=== PATIENT | female | born 1990 | race Caucasian/White ===

== ENCOUNTER 2018-03-04 06:17 | Inpatient (IN) ==
[2018-03-04] MEDS ORDERED: METHYLERGONOVINE 0.2 MG/ML INJECTION IM PRN (06:23)
[2018-03-04] MEDS ORDERED: LIDOCAINE 1% (10mg/ml) 2mL INJ PF SDV ID PRN (06:23)
[2018-03-04] MEDS ORDERED: OXYTOCIN DRIP 30 UNIT/500 ML ML IV PRN (06:23)
[2018-03-04] MEDS ORDERED: CALCIUM CARBONATE Chewable 500mg TABLET PO PRN ×2 (06:23→18:29)
[2018-03-04] MEDS ORDERED: MAG-AL + SIM ORAL LIQUID 30ml PO PRN (06:23)
[2018-03-04] MEDS ORDERED: ACETAMINOPHEN 500 MG TABLET PO PRN ×2 (06:23→18:29)
[2018-03-04] MEDS ORDERED: CARBOPROST 250 MCG/ML INJECTION IM PRN (06:23)
[2018-03-04] MEDS ORDERED: D5LR 1,000 ML IV PRN (06:23)
[2018-03-04 06:51] VITALS: BMI 31.2
[2018-03-04] MEDS: LR 1,000 ML IV PRN ×3 (07:04→13:00)
[2018-03-04] MEDS ORDERED: ROPIVACAINE 1% 10MG/ML INJ 200 MG, SUFentanil 50 MCG in NS 100 ML EPI PRN (10:07)
[2018-03-04] MEDS ORDERED: ONDANSETRON 4 MG/2 ML INJECTION IVP PRN ×3 (10:07→18:29)
[2018-03-04] MEDS ORDERED: DiphenhydrAMINE 50 MG/ML INJECTION IVP PRN (10:07)
[2018-03-04] MEDS ORDERED: NALOXONE 0.4 MG/ML INJECTION IVP PRN (10:07)
--- NOTE | 2018-03-04 10:07 | Anesthesia Preoperative Report ---
Anesthesia Epidural/Spinal Rec - Date and Time Date: 03/04/18 Preoperative Diagnosis: Term Induction Procedure: Labor Epidural Plan: Epidural - Vital Signs Vital Signs: Temperature 97.9 F 03/04/18 06:40 Pulse Rate 125 H 03/04/18 06:40 Respiratory Rate 16 03/04/18 06:40 Blood Pressure 127/87 03/04/18 06:40 Pulse Oximetry 97 03/04/18 06:40 /Para: P:0 - Medictaions & Allergies Inpatient Medications: Current Medications Acetaminophen (Tylenol) 500 - 1,000 mg PO Q4H PRN PRN Reason: Pain Al Hydroxide/Mg Hydroxide (Maalox Plus) 30 ml PO Q3H PRN PRN Reason: Indigestion Calcium Carbonate (Tums) 500 - 1,000 mg PO Q2H PRN PRN Reason: Indigestion Carboprost Tromethamine (Hemabate) 250 mcg IM O PRN PRN Reason: .Downtime Lactated Ringer's (Lactated Ringers) 1,000 mls @ 999 mls/hr IV .Q1H1M PRN Last Admin: 03/04/18 07:04 Dose: 999 mls/hr Oxytocin (Pitocin Drip) 30 unit in 500 mls @ 2 mls/hr IV .Q24H PRN; Protocol PRN Reason: Induction/Augmentation Last Admin: 03/04/18 07:04 Dose: 2 mls/hr Dextrose/Lactated Ringer's (Dextrose 5%-Lactated Ringers) 1,000 mls @ 125 mls/ hr IV .Q8H PRN PRN Reason: Labor Last Admin: 03/04/18 07:00 Dose: 125 mls/hr Lidocaine HCl (Xylocaine-Mpf 1% Vial) 0.2 mg ID O PRN PRN Reason: IV Start Methylergonovine Maleate (Methergine) 0.2 mg IM O PRN Misoprostol (Cytotec) 800 mcg NC ONCE PRN Allergies/Adverse Reactions: Allergies Allergy/AdvReac Type Severity Reaction Status Date / Time Penicillins Allergy Verified 03/04/18 07:09 Sulfa (Sulfonamide Allergy Verified 03/04/18 07:09 Antibiotics) - Home Medications Home Medications: Home Medications Medication Instructions Recorded Confirmed Type Flonase 02/24/18 History Iron 02/24/18 History Loratadine 02/24/18 History Vitamins 02/24/18 History - Medical History Respiratory: Reports: Asthma (sports induced) DENIES: Bronchitis, Chronic Obstructive Pulmonary Disease (COPD), Dyspnea, Orthopnea, Pulmonary Embolism, Pneumonia, Upper Respiratory Infection, Pulmonary Edema, Sleep Apnea, Tuberculosis, Other Cardiovascular: DENIES: Abnormal EKG, Angina, Arrhythmia, Congestive Heart Failure, Coronary Artery Disease, Heart Murmur, Hypertension, Hypotension, High Cholesterol, Myocardial Infarction, Rheumatic Fever, Valvular Heart Disease, Other Gastrointestional: DENIES: Obstructive Bowel, Hepatitis, Cirrhosis, Nausea or Vomiting Present, Gastroesophageal Reflux Disease, Gastrointestinal Bleeding, Hiatal Hernia, Ulcer , Morbid Obesity, Other Neuro/Musculoskeletal: Denies: HX.MS.OSAR, Back Problems, Cerebrovascular Accident, Depression, Headaches, Loss of Consciousness, Muscle Weakness, Neuromuscular Disorder, Paralysis, Paresthesia, Syncope, Seizures, Other Renal/Endocrine: DENIES: Diabetes Mellitus Type 1, Diabetes Mellitus Type 2, Renal Failure, Dialysis, Thyroid Disease, Weight Loss, Weight Gain, Other Other History: Reports: Now - Surgical History HEENT Surgeries: Reports: Oral Surgery (wisdom teeth 2009) Anesthesia Reactions: None Hx Family Anesthesia Reaction: No History of Motion Sickness: No - Social History Smoking Status: Never smoker Substance Use Type: does not use Alcohol Intake Frequency: does not drink Hx Chewing Tobacco Use: No - Pertinent Findings Lab Data: CBC and BMP 03/04/18 06:42 - Physical Exam Respiratory Exam: lungs clear, bilateral breath sounds equal Cardiovascular Exam: regular rate and rhythm, no murmur - Airway Assessment Mallampati Score: I TMD: 3 Fingerbreadths Neck Extension: good Overall Assessment: may be difficult intubation - ASA ASA Score: 2 - Discussion Discussion: Discussed risks/options/alternatives of anesthesia and questions answered. Patient consents. Nursing pain assessment noted. Anesthesia Discussion: spouse Attestation Statement: Prior to the delivery of any anesthetic medication, I examined the patient, developed the plan, obtained the patient's consent and discussed the risk and benefits of the procedure with the patient/guardian.
[2018-03-04] MEDS ORDERED: FAMOTIDINE PB 20 MG/50 ML BAG IV ONE (16:30)
[2018-03-04] MEDS ORDERED: CEFAZOLIN PREMIX (MC ONLY) 2 GM/50 ML BAG IV ONE (16:30)
[2018-03-04] MEDS ORDERED: CITRIC ACID/SODIUM CITRATE 30ml PO ONE (16:30)
[2018-03-04] MEDS ORDERED: SODIUM BICARBONATE 8.4% (50mEq/50ml) VIAL IV ONE (16:35)
[2018-03-04] MEDS ORDERED: LIDOCAINE 2%/EPI 1:200,000 20ml SDV PF ONE (16:35)
[2018-03-04] MEDS ORDERED: NALBUPHINE 10 MG/ML INJECTION IVP PRN (16:40)
[2018-03-04] MEDS ORDERED: NALOXONE 2 MG/2 ML INJECTION PFS IVP PRN (16:40)
[2018-03-04] MEDS ORDERED: GENTAMICIN 120 MG in NS 100 ML IV ONE (16:45)
[2018-03-04] MEDS ORDERED: OXYTOCIN BOLUS BAG 30 UNIT/500 ML ML IV SCH (17:00)
[2018-03-04] MEDS ORDERED: MORPHINE SULFATE PF 5mg/10ml INJ (Duramorph) ONE (17:08)
[2018-03-04] MEDS: CLINDAMYCIN PB 900 MG/50 ML BAG IV SCH (17:20)
[2018-03-04] MEDS ORDERED: GENTAMICIN - PHARMACY CONSULT MC ONE (17:47)
[2018-03-04] MEDS ORDERED: HYDROCORTISONE 2.5% CREAM 30gm RECTALLY PRN (18:29)
[2018-03-04] MEDS ORDERED: DiphenhydrAMINE 25 MG CAPSULE PO PRN (18:29)
[2018-03-04] MEDS ORDERED: SIMETHICONE 80 MG CHEWABLE TABLET PO PRN (18:29)
[2018-03-04] MEDS ORDERED: SALINE FLUSH 10ml SYRINGE IV PRN (18:29)
[2018-03-04] MEDS ORDERED: METOCLOPRAMIDE 10mg/2ml INJECTION IVP PRN (18:29)
[2018-03-04] MEDS ORDERED: OXYTOCIN DRIP 30 UNIT/500 ML ML IV SCH (18:29)
[2018-03-04] MEDS: D5LR 1,000 ML IV SCH (18:42)
[2018-03-04] MEDS: HYDROCODONE/APAP 5mg/325mg TABLET PO PRN (18:43)
--- NOTE | 2018-03-04 19:42 | Operative Note ---
DATE OF SURGERY: 03/04/2018 PREOPERATIVE DIAGNOSES 1. 27-year-old white female G1, P0 at 39.0 weeks gestational age. 2. Polyhydramnios. 3. Pitocin induction of labor for polyhydramnios. 4. Epidural. 5. Spontaneous rupture of membranes. 6. Chorioamnionitis. 7. Arrest of descent. POSTOPERATIVE DIAGNOSES 1. Male infant, 3894 grams, 7/9 Apgars, (DANIEL BRYANT). PROCEDURE: Primary low transverse section. SURGEON: Dorian Henao MD DAMAGED FREIGHT INSPECTOR: Don Armstrong DO EBL: 800 mL ANESTHESIA: Epidural catheter dosing by Luca Dupree CRNA COMPLICATIONS: None This is a patient of mine who was being induced today because of polyhydramnios at term. We have been following her poly for a month or so. Pitocin reached a maximum of 18 milliunits a minute. Spontaneous rupture of membranes occurred at 8:10 a.m. Patient made it to complete dilation and pushed for almost three hours in the OA position without descent. At the end of our time pushing, vaginal temperature was 101. was called and IV antibiotics were started with cephazolin and gentamicin given before delivery and clindamycin after delivery. DESCRIPTION OF PROCEDURE After adequate epidural anesthesia, the patient was prepped and draped in the left lateral decubitus position with pt also in low lithotomy stirrups. A Pfannenstiel skin incision was made with a sharp knife and carried down the fascia, which was incised transversely with the Arriaga scissors. The rectus fascia was bluntly and sharply dissected off the rectus muscle. The rectus muscle was divided, and the peritoneum was isolated, elevated, entered with the Metzenbaum scissors and extended cephalad and caudad. The bladder blade was then inserted. The lower vesicouterine fold of the peritoneum was isolated and incised transversely. The bladder was bluntly dissected off the lower uterine segment. The bladder blade was reinserted. Then using a sharp knife, a transverse incision was made in the lower uterine segment. This was extended with my fingers. A male infant was in the OA position but wedged in the pelvis. We had the patient in stirrups so that the charge nurse could elevate the head from below. We were able to rotate the baby to OP and elevate the head out and then deliver it. was bulb suctioned after delivery of the head and then again after delivery of the body. Cord was doubly clamped and cut and the was received by Dr. Aubrey Juares of Pediatrics. The placenta was expressed spontaneously and was intact. The uterus was then allowed to fall upon the external abdominal wall. The endometrial cavity was cleansed using moist lap sponges. The uterus was closed using 0-Monocryl in a running locking fashion bilaterally from the lateral edges medially. Hemostasis was confirmed. The bladder flap was then reapproximated with the visceral peritoneum using 3-0 Vicryl in a running nonlocking fashion. The posterior cul-de-sac was cleansed of old blood clots and the tubes and ovaries were examined and found to be normal in size, shape and appearance. After hemostasis was again confirmed, the uterus was then carefully returned to the abdominal cavity. The abdomen was then closed in layers. The peritoneum was closed using 2-0 Vicryl in running nonlocking fashion. The fascia was closed using 0-Vicryl in a running nonlocking fashion bilaterally from the lateral aspects medially. Hemostasis was achieved with the subcutaneous tissue and then the skin was closed using wide rula in a serial fashion. The patient tolerated the procedure well and went to the recovery room in stable condition. Pad, sponge and needle counts were correct and urine postop was clear and free flowing. MTDD
[2018-03-04] MEDS: SIMETHICONE 80 MG CHEWABLE TABLET PO SCH (22:48)
[2018-03-05] MEDS: GENTAMICIN PB 120 MG/100 ML BAG IV SCH ×3 (00:10→16:20)
[2018-03-05] MEDS: CEFAZOLIN 1 G in NS 100 ML IV SCH ×3 (00:52→17:28)
[2018-03-05] MEDS: CLINDAMYCIN PB 900 MG/50 ML BAG IV SCH ×4 (01:27→18:19)
[2018-03-05] MEDS: IBUPROFEN 800 MG TABLET PO PRN ×3 (02:29→21:56)
[2018-03-05] MEDS: HYDROCODONE/APAP 5mg/325mg TABLET PO PRN ×5 (02:29→21:56)
[2018-03-05] MEDS: D5LR 1,000 ML IV SCH (08:49)
--- NOTE | 2018-03-05 09:21 | Progress Note ---
OB PP Progress Note Free Text - Date Date: 03/05/18 - Progress Note Progress Note: POD #1 vss af doing well disc likely course from here disc plan w/ RN q&a-krb
[2018-03-05] MEDS: SIMETHICONE 80 MG CHEWABLE TABLET PO SCH ×3 (12:09→21:57)
[2018-03-05] MEDS: DOCUSATE CALCIUM 240 MG CAPSULE PO SCH (12:09)
--- NOTE | 2018-03-05 14:51 | Anesthesia Postoperative Note ---
- Date and Time Date: 03/05/18 Time: 14:50 - Status Patient Participated in Evaluation: Patient Participated in Person Vital Signs: Temperature 97.5 F 03/05/18 11:00 Pulse Rate 103 H 03/05/18 11:00 Respiratory Rate 16 03/05/18 11:00 Blood Pressure 126/75 03/05/18 11:00 Pulse Oximetry 96 03/05/18 11:00 Respiratory Function: Airway Patent Cardiovascular Function: Regular Pulse Mental Status: Alert and Oriented Pain Intensity: 0 Hydration: Taking PO Fluids Complications During Recover: None Apparent - Follow-Up Instructions Instructions: Per Surgeon
--- NOTE | 2018-03-05 17:30 | Progress Note ---
OB PP Progress Note Free Text - Date Date: 03/05/18 - Progress Note Progress Note: vss af will dc antibiotics tonight q&a w/ pt and family.
[2018-03-06] MEDS: GENTAMICIN PB 120 MG/100 ML BAG IV SCH (00:17)
[2018-03-06] MEDS: D5LR 1,000 ML IV SCH (02:28)
[2018-03-06] MEDS: CEFAZOLIN 1 G in NS 100 ML IV SCH (02:34)
[2018-03-06] MEDS: CLINDAMYCIN PB 900 MG/50 ML BAG IV SCH (02:34)
[2018-03-06] MEDS: HYDROCODONE/APAP 5mg/325mg TABLET PO PRN ×3 (03:59→17:41)
[2018-03-06] MEDS: SIMETHICONE 80 MG CHEWABLE TABLET PO SCH ×3 (08:45→17:41)
[2018-03-06] MEDS: DOCUSATE CALCIUM 240 MG CAPSULE PO SCH (08:45)
[2018-03-06] MEDS: IBUPROFEN 800 MG TABLET PO PRN ×2 (10:43→20:48)
--- NOTE | 2018-03-06 11:10 | OB/GYN Progress Note ---
OB-PP Progress Note - General PPD2 Maternal Group B Strep: Negative Maternal blood type: O+ Maternal Rubella Status: Immune - Subjective Date: 03/06/18 Lochia: Minimal Pain: controlled Voiding: voiding - Objective Vital Signs: Last Vital Signs Temp 98.0 F 03/06/18 08:36 Pulse 100 03/06/18 08:36 Resp 20 03/06/18 08:36 BP 113/68 03/06/18 08:36 Pulse Ox 97 03/06/18 08:36 General: alert and oriented Abdomen: fundus firm, non-tender Incision: normal, clean, dry, intact Extremities: non-tender - Assessment Assessment: Primary C/S, Chorioamnionitis (Resolved) - Plan Plan: routine care, continue PNV She hasn't decided if she wants to go home this evening or tomorrow.
[2018-03-06 13:31] VITALS: O2SAT 96
[2018-03-07 01:51] VITALS: RESP 16; TEMP 98
[2018-03-07] MEDS: SIMETHICONE 80 MG CHEWABLE TABLET PO SCH (01:55)
[2018-03-07] MEDS: HYDROCODONE/APAP 5mg/325mg TABLET PO PRN (05:11)
[2018-03-07 08:49] VITALS: BP 120/83; PULSE 101
--- NOTE | 2018-03-07 09:59 | OB/GYN Progress Note ---
OB-PP Progress Note - General PPD3 Maternal Group B Strep: Negative Maternal blood type: O+ Maternal Rubella Status: Immune - Subjective Date: 03/07/18 Lochia: Minimal Pain: controlled Voiding: voiding - Objective Vital Signs: Last Vital Signs Temp 98.0 F 03/07/18 01:25 Pulse 101 H 03/07/18 08:48 Resp 16 03/07/18 08:48 BP 120/83 03/07/18 08:48 Pulse Ox 96 03/06/18 12:55 General: alert and oriented Abdomen: fundus firm, non-tender Incision: normal, clean, dry, intact Extremities: non-tender - Assessment Assessment: Primary C/S - Plan Plan: routine care, discharge home, continue PNV
== END 2018-03-07 11:44 | disposition home or self-care (01) | DRG 765 ==
LOC: MC 06:17
PROVIDERS: ADMIT Obstetrics & Gynecology; ATTEND Obstetrics & Gynecology